=== PATIENT | female | born 1935 | race Caucasian/White ===

== ENCOUNTER 2016-05-27 18:01 | Inpatient (IN) ==
[2016-05-27] MEDS ORDERED: METOPROLOL TARTRATE 5 MG/5 ML VIAL IV STA (20:25)
[2016-05-27] MEDS ORDERED: hydrALAZINE 20 MG/1 ML VIAL IV STA (20:25)
[2016-05-27] MEDS ORDERED: KETOROLAC 30 MG/1 ML VIAL IV STA (20:25)
[2016-05-27] MEDS ORDERED: ASPIRIN 325 MG TABLET PO STA (20:25)
[2016-05-27] MEDS ORDERED: ONDANSETRON 4 MG/2 ML VIAL IV STA (20:25)
[2016-05-27] MEDS ORDERED: NITROGLYCERIN 2% OINT 1 INCH/GM PACK TOP STA (20:25)
--- NOTE | 2016-05-27 20:32 | Emergency Department Note ---
Arrival - Arrival Chief Complaint: Chest Pain Stated Complaint: Chest pain, shortness of breath ED Nursing Triage Note: PT C/O MIDSTERNAL CHEST PAIN SINCE 0800 THIS AM. STATES PAIN WORSENS WITH DEEP BREATHS AND MOVEMENTS. REPORTS INCREASING SHORTNESS OF BREATH WITH EXERTION. Mode of Arrival: Wheelchair Limitations: No Limitations Source: Patient, Family Time Seen by Provider: 05/27/16 20:25 - History of Present Illness HPI Narrative: This 81-year-old white female presents with approximately 18 hours of constant central mechanical chest wall pain associated with mild shortness of breath. She denies nausea, vomiting, or diaphoresis. 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 Likewise noted is a history of a hiatal hernia with significant problems with reflux symptoms. In addition to her chest pain she likewise has pain in the left shoulder and left neck. She denies orthopnea, PND, hemoptysis, or pleuritic chest pain. Also notable is the absence of a history of hypertension but the patient presents with markedly elevated blood pressure at this time. Currently she appears anxious but in no acute distress. Onset (ago): hour(s) (patient presents approximately 18 hours after onset of symptoms) Consistency: constant Severity: moderate Severity scale (1-10): 5 Quality: fullness Allergies/Adverse Reactions: Allergies Allergy/AdvReac Type Severity Reaction Status Date / Time No Known Allergies Allergy Verified 05/27/16 18:16 Home Medications: Home Medications Medication Instructions Recorded Confirmed Type Levothyroxine Tab [Synthroid Tab] 88 mcg PO DAILY@0700 08/13/14 05/27/16 History Lovastatin 40 mg PO BEDTIME 08/13/14 05/27/16 History Metformin HCl 1,000 mg PO BID 08/13/14 05/27/16 History Multivitamin (Centrum Silver) 1 tablet PO DAILY 08/13/14 05/27/16 History [Centrum Silver] Vit A/Vit C/Vit E/Zinc/Copper 1 each PO DAILY 08/13/14 05/27/16 History [Preservision Areds Softgel] Warfarin [Coumadin] 4 mg PO QOTHER DAY@1800 08/13/14 05/27/16 History glipiZIDE [Glucotrol] 10 mg PO BIDAC 08/13/14 05/27/16 History traMADol TAB [Ultram] 50 mg PO Q6H PRN 08/13/14 05/27/16 History Calcium (Carbonate) [Caltrate 600] 1,200 mg PO BID 05/27/16 05/27/16 History Warfarin [Coumadin] 5 mg PO QOTHER DAY 05/27/16 05/27/16 History Review of System - Review of System 12 point system: reviewed and no additional remarkable complaints except as stated - Review of System Constitutional: Present: as per HPI Respiratory: Present: as per HPI Cardiovascular: Present: as per HPI Gastrointestinal: Present: as per HPI Musculoskeletal: Present: as per HPI Medical,Surgical,& Family Hx - Medical History Cardio: History of: Hypertension No history of: CAD, [place] Neurology: History of: Cerebrovascular Accident (3 strokes) No history of: Migraine, Seizures HEENT: History of: Eye Problem (glasses) Endocrine: History of: Diabetes Mellitus (NIDDM), Dyslipidemia Respiratory: History of: Pulmonary Embolism (and DVT, has filter adn on anticoagulation.) Renal: No history of: Renal Failure Gastrointestinal: History of: GERD, GI Problems (large hiatal hernia producing dysphagia at times) No history of: Diverticulitis/ Diverticulosis, Gastrointestinal Bleed Musculoskeletal: History of: Musculoskeletal Problems (arthritis in shoulders, knees) Hematology: History of: Anemia, Clotting Problems (dvts--hyper-coagulable state) No history of: Blood Transfusion Reaction Other: No history of: Anesthesia Reactions, Cancer - Surgical History Cardiac Surgeries: Patient Denies: Cardiac Catheterization HEENT Surgeries: Patient denies: Eye Surgery, Tonsilectomy & Adenoidectomy Abdominal Surgeries: Surgical HX of: Appendectomy Patient denies: Cholecystectomy Reproductive Surgeries: Surgical HX of;: Hysterectomy Orthopedic Surgeries: Patient denies;: Orthopedic Surgery - Family History Family History: Reports;: Family Cancer (), Family Hypertension (Daughter ) - Social History Smoking Status: Never smoker Frequency of Alcohol Use: None Type of Drug Use: None Exam Physical Examination: GENERAL: Well developed, well nourished, white female in no acute distress. HEENT: Normocephalic. No trauma. Moist mucous membranes. EOMI. PERRLA. ENT clear. NECK: Supple. Paraspinal cervical muscle spasm noted left greater than right. No adenopathy. CARDIAC: Regular. 1/4 belkis, loud p2. Heart rate 110 CHEST: Clear to auscultation. No respiratory distress. O2 sat 98% tender right and left costosternal junctions. ABDOMEN: Soft. Nontender. Active bowel sounds. EXTREMITIES: No trauma. Left shoulder reveals tenderness to palpation range of motion but no limits on range of motion. No pedal edema. SKIN: No diaphoresis. No rash. NEURO: Alert. Oriented 3. Motor, sensory, vibratory intact. No focal deficits. Vital Signs: Vital Signs Temperature 98.5 F 05/27/16 18:10 Pulse Rate 111 H 05/27/16 18:10 Respiratory Rate 24 05/27/16 18:10 Blood Pressure 182/97 05/27/16 18:10 O2 Sat by Pulse Oximetry 98 05/27/16 18:10 Course - Reevaluation(s) Reevaluation #1: Discussed with patient's family and the patient that she has both a left lower lobe pneumonia and an active bladder infection. - Consultations Consultation #1: Discussed with Dr. Griffith, hospitalist, who will admit for further evaluation and treatment. Results - Labs CBC & BMP: 05/27/16 20:30 05/27/16 20:30 Labs: I have reviewed the patient's laboratory and noted the bump and white blood cell count as well as the urinary tract infection. - Impressions EKG: Sinus tachycardia at 108. Normal IL interval and QRS duration. Left anterior fascicular block. No acute injury pattern noted. - Diagnostic Findings Procedure: Chest x-ray: image reviewed by me, report reviewed by me (left lower lobe pneumonia) Disposition Clinical Impression: pneumonia, cystitis Case discussed with: patient, patient's family Disposition: Still a Patient Condition: Guarded Time of Disposition: 21:55
[2016-05-27 20:35] LABS: Basophils # 0.1 10*3/uL (0.0-0.2); Basophils % 0.5 % (0.0-0.8); Eosinophils # 0.1 10*3/uL (0.0-0.87); Eosinophils % 0.6 % (0.00-10.9); Hematocrit 40.2 VOL% (35.7-47.0); Hemoglobin 13.2 GM/DL (12.0-16.0); Immature Granulocytes % 0.5 %; Immature Granulocytes Absolute 0.05 #; Lymphocytes # 2.5 10*3/uL (1.4-4.0); Lymphocytes % 22.8 % (21.3-54.2); Mean Corpuscular HGB Conc 32.8 GM/DL (32-36); Mean Corpuscular Hemoglobin 29 PG (27-34); Mean Corpuscular Volume 88.5 FL (87-102); Mean Platelet Volume 9.7 FL (9.6-12.0); Monocytes # 1.1 10*3/uL (0.11-0.8); Monocytes % 10.4 % (1.7-12.7); Neutrophils # 7.2 10*3/uL (1.4-7.4); Neutrophils % 65.2 % (38.7-73.9); Platelet Count 338 10*3/uL (130-400); Red Blood Count 4.54 10*6/uL (3.8-5.5); Red Cell Distribution Width 14.7 % (9.3-17.3)
[2016-05-27] MEDS ORDERED: NITROGLYCERIN 2% OINT 1 INCH/GM PACK TOP ONE (20:35)
[2016-05-27] MEDS ORDERED: LORazepam 1 MG TABLET PO STA (20:35)
[2016-05-27] MEDS ORDERED: KETOROLAC 30 MG/1 ML VIAL ONE (20:36)
[2016-05-27] MEDS ORDERED: METOPROLOL TARTRATE 5 MG/5 ML VIAL IV ONE (20:36)
[2016-05-27] MEDS ORDERED: hydrALAZINE 20 MG/1 ML VIAL ONE (20:36)
[2016-05-27] MEDS ORDERED: ASPIRIN 325 MG TABLET ONE (20:36)
[2016-05-27] MEDS ORDERED: ONDANSETRON 4 MG/2 ML VIAL ONE (20:36)
[2016-05-27 20:51] LABS: D-Dimer <= 0.5 MG/L FEU
[2016-05-27 20:56] LABS: Alanine Aminotransferase 14 U/L (13-56); Albumin 3.6 G/DL (3.4-5.0); Alkaline Phosphatase 87 U/L (45-117); Aspartate Amino Transferase 11 U/L (0-37); Blood Urea Nitrogen 16 MG/DL (7-18); Calcium 9.2 MG/DL (8.5-10.1); Glucose 155 MG/DL (74-106); INR 2.3; Osmolality,Calculated 286.1 MOS/KG (273-304); Potassium 4.4 MMOL/L (3.5-5.1); Sodium 142 MMOL/L (136-145); Total Protein 7.3 G/DL (6.4-8.3); Troponin I Only < 0.015 NG/ML (0.00-0.045)
--- NOTE | 2016-05-27 21:03 | XRay Report ---
Exam: XR chest 1V portable Date: 05/27/2016 8:25 PM Indication: Chest pain Comparison: None Technical:08/29/2014 Findings: Mild cardiomegaly present. Patchy infiltrates are present in the left base with underlying component of pulmonary fibrotic scarring. Low-volume left effusion. ASVD is present. Previous vertebral plasty at 3 levels in the thoracic spine. Bony demineralization is present. Impression: 1. Left lower lobe the pneumonic infiltrate and effusion superimposed on underlying pulmonary fibrosis 2. Previous vertebral plasty. PROCEDURE INTERPRETED AT [facility] DEPARTMENT OF RADIOLOGY Final Report Signed by: Dr. Enrrique Metz
--- NOTE | 2016-05-27 21:05 | XRay Report ---
Exam: XR cervical spine AP/LAT Date: 05/27/2016 8:27 PM Indication: Cervical radiculopathy Comparison: None Technical:AP lateral open-mouth odontoid view Findings: The odontoid is unremarkable. 7 cervical vertebral bodies are demonstrated. Posterior elements are intact. There is a mild disc space narrowing at C3-4 C4-5 C5-6 and C6-7. Neural foramina canals are not evaluated without oblique images. Vascular plaque present. No prevertebral soft tissue abnormalities the patient is edentulous Impression: 1. Mild intervertebral discogenic disease without fracture dislocation of the submitted images 2. Vascular calcinosis PROCEDURE INTERPRETED AT [facility] DEPARTMENT OF RADIOLOGY Final Report Signed by: Dr. Enrrique Metz
[2016-05-27 21:09] LABS: PT Patient Result 25.6 SECS
[2016-05-27 21:28] LABS: Apearance,Urine CLOUDY (Clear); Bacteria,Urine Moderate /HPF (Few); Bilirubin,Urine Negative (Negative); Blood, Urine Negative (Negative); Glucose,Urine (UA) Negative (Negative); Hyaline Casts,Urine 1 /LPF (0-3); Ketones,Urine Negative (Negative); Mucus,Urine Occasional /LPF (Occasional); Nitrite,Urine Negative (Negative); Protein,Urine Negative; RBC,Urine 7 /HPF (0-4); Squamous Epithelial Cell,Urine Occasional /HPF (0-10); Urine Color Yellow (Yellow); Urine Specific Gravity 1.015 (1.001-1.035); Urine Urobilinogen < 2.0 EU/DL (0.2-1.0); WBC,Urine 45 /HPF (0-6)
[2016-05-27] MEDS ORDERED: LEVOFLOXACIN INJ 750 MG in PREMIX 1 EACH IV STA (21:51)
[2016-05-27] MEDS ORDERED: methylPREDNISolone SOD SUC 125 MG/2 ML VIAL IV STA (21:51)
[2016-05-27] MEDS ORDERED: ALBUTEROL/IPRATROPIUM 3 ML NEB RESP TX STA (21:51)
[2016-05-27] MEDS ORDERED: methylPREDNISolone SOD SUC 125 MG/2 ML VIAL ONE (22:14)
[2016-05-27] MEDS ORDERED: LEVOFLOXACIN INJ 150 ML IV ONE (22:14)
[2016-05-27] MEDS ORDERED: LORazepam 1 MG TABLET ONE (22:14)
[2016-05-27] MEDS ORDERED: ALBUTEROL 2.5 MG/3 ML NEB RESP TX PRN (23:42)
[2016-05-27] MEDS ORDERED: ACETAMINOPHEN 325 MG TABLET PO PRN (23:42)
[2016-05-27] MEDS ORDERED: traMADol 50 MG TABLET PO PRN (23:42)
[2016-05-27] MEDS ORDERED: DEXTROSE 50% 25 GM/50 ML VIAL IV PRN (23:42)
[2016-05-27] MEDS ORDERED: ONDANSETRON 4 MG/2 ML VIAL IV PRN (23:42)
[2016-05-27] MEDS ORDERED: GLUCAGON 1 MG VIAL IM PRN (23:42)
--- NOTE | 2016-05-28 00:38 | Hospitalist History & Physical ---
Assessment and Plan (1) Pulmonary fibrosis Status: Acute Assessment and plan: The patient has had episodes of pulmonary infiltrates in the past which improved with steroids and antibiotics. The patient will be admitted for treatment with steroid, antibiotic, and beta agonist nebulized breathing therapies. We will ask Dr. Henson to evaluate her in the morning. The patient will have antiacid medications to help with the GI discomfort as well Current Visit: Yes (2) GERD (gastroesophageal reflux disease) Status: Acute Current Visit: Yes (3) Pneumonia Status: Acute Current Visit: No History of Present Illness Chief complaint: substernal chest and epigastric pain History of present illness: Ms. Malcolm is a 81 year old female with history of pulmonary fibrosis. The patient presents to the hospital with substernal chest pressure as well as epigastric pain. The patient's pain is not exertional. It is associated with worsening pulmonary infiltrate and possible pneumonia seen on chest x-ray. The patient denies diaphoresis or fever at home. The patient has not had palpitations. The patient has had minimal shortness of breath and occasional sputum production. The patient's symptoms are moderate, episodic, and worsening. Home Medications Medication Instructions Recorded Confirmed Type Levothyroxine Tab [Synthroid Tab] 88 mcg PO DAILY@0700 08/13/14 05/27/16 History Lovastatin 40 mg PO BEDTIME 08/13/14 05/27/16 History Metformin HCl 1,000 mg PO BID 08/13/14 05/27/16 History Multivitamin (Centrum Silver) 1 tablet PO DAILY 08/13/14 05/27/16 History [Centrum Silver] Vit A/Vit C/Vit E/Zinc/Copper 1 each PO DAILY 08/13/14 05/27/16 History [Preservision Areds Softgel] Warfarin [Coumadin] 4 mg PO QOTHER DAY@1800 08/13/14 05/27/16 History glipiZIDE [Glucotrol] 10 mg PO BIDAC 08/13/14 05/27/16 History traMADol TAB [Ultram] 50 mg PO Q6H PRN 08/13/14 05/27/16 History Calcium (Carbonate) [Caltrate 600] 1,200 mg PO BID 05/27/16 05/27/16 History Warfarin [Coumadin] 5 mg PO QOTHER DAY 05/27/16 05/27/16 History Allergies Allergy/AdvReac Type Severity Reaction Status Date / Time No Known Allergies Allergy Verified 05/27/16 18:16 Medical,Surgical,& Family Hx - Medical History Cardio: History of: Hypertension No history of: CAD, [place] Neurology: History of: Cerebrovascular Accident (3 strokes) No history of: Migraine, Seizures HEENT: History of: Eye Problem (glasses) Endocrine: History of: Diabetes Mellitus (NIDDM), Dyslipidemia Respiratory: History of: Pulmonary Embolism (and DVT, has filter adn on anticoagulation.) Renal: No history of: Renal Failure Gastrointestinal: History of: GERD, GI Problems (large hiatal hernia producing dysphagia at times) No history of: Diverticulitis/ Diverticulosis, Gastrointestinal Bleed Musculoskeletal: History of: Musculoskeletal Problems (arthritis in shoulders, knees) Hematology: History of: Anemia, Clotting Problems (dvts--hyper-coagulable state) No history of: Blood Transfusion Reaction Other: No history of: Anesthesia Reactions, Cancer - Surgical History Cardiac Surgeries: Patient Denies: Cardiac Catheterization HEENT Surgeries: Patient denies: Eye Surgery, Tonsilectomy & Adenoidectomy Abdominal Surgeries: Surgical HX of: Appendectomy Patient denies: Cholecystectomy Reproductive Surgeries: Surgical HX of;: Hysterectomy Orthopedic Surgeries: Patient denies;: Orthopedic Surgery - Family History Family History: Reports;: Family Cancer (), Family Hypertension (Daughter ) - Social History Smoking Status: Never smoker Frequency of Alcohol Use: None Type of Drug Use: None Marital Status: Lives With:: Children Functional capacity: uses cane/walker 12 point system: reviewed and no additional remarkable complaints except as stated Exam - Constitutional Exam: Constitutional System: Mild distress. No tremulousness. Mild cough, some anxiety Head: Normocephalic, atraumatic. Ears, Nose and Throat System: No evidence of Otitis or Mastoiditis. No epistaxis or discharge Eyes System: Pupils equal, round, and reactive. Extraocular muscles intact. Neck: Supple, without adenopathy, No jugular venous distention. No thyromegaly , neck mass, or prior surgery apparent. Respiratory System: Chest with Velcro sounds generally and some left lower chest rhonchi to auscultation. Cardiovascular System: Heart with regular rate and rhythm. No murmur. GI System: Abdomen soft, nontender. Normoactive bowel sounds present. Patient prefers to the epigastrium and xiphoid as origin of her pain Musculoskeletal System: limbs with no pedal edema. Full distal pulses. Neurological System: No discernable sensory deficit. No aphasia Psychiatric System: Conversation is rational Results - Labs CBC & BMP: 05/27/16 20:30 05/27/16 20:30 Lab Results: I have reviewed the past 24 hour labs - Diagnostic Findings Procedure: Chest x-ray: image reviewed by me (chronic scarring bilaterally consistent with fibrosis, pleural effusion on the left with possible infiltrate) Quality Measures - VTE Contraindication to Pharmacological VTE Prophylaxis: Already on Theraputic Agent , No Prophylaxis Needed
[2016-05-28] MEDS: methylPREDNISolone SOD SUC 40 MG/1 ML VIAL IV SCH ×3 (01:01→22:28)
[2016-05-28] MEDS: ALBUTEROL/IPRATROPIUM 3 ML NEB RESP TX SCH ×4 (01:11→20:41)
[2016-05-28] MEDS: ALUMINUM/MAGNES/SIMETH MAX STR 30 ML UDCUP PO SCH ×4 (01:13→18:20)
[2016-05-28] MEDS: SODIUM CHLORIDE 0.9% 1,000 ML IV SCH ×2 (01:13→14:41)
[2016-05-28] MEDS: MEROPENEM 1,000 MG in SODIUM CHLORIDE 0.9% 100 ML IV SCH ×4 (01:13→23:40)
[2016-05-28 04:34] LABS: Basophils % 0.2 % (0.0-0.8); Hematocrit 35.6 VOL% (35.7-47.0); Hemoglobin 11.7 GM/DL (12.0-16.0); Immature Granulocytes % 0.5 %; Immature Granulocytes Absolute 0.03 #; Lymphocytes # 0.6 10*3/uL (1.4-4.0); Lymphocytes % 8.7 % (21.3-54.2); Mean Corpuscular HGB Conc 32.9 GM/DL (32-36); Mean Corpuscular Hemoglobin 29 PG (27-34); Mean Corpuscular Volume 89.2 FL (87-102); Mean Platelet Volume 10.3 FL (9.6-12.0); Monocytes % 0.6 % (1.7-12.7); Neutrophils # 5.9 10*3/uL (1.4-7.4); Platelet Count 317 10*3/uL (130-400); Red Blood Count 3.99 10*6/uL (3.8-5.5); Red Cell Distribution Width 14.8 % (9.3-17.3); White Blood Count 6.6 10*3/uL (4.5-13.71)
[2016-05-28 04:44] LABS: INR 2.2
[2016-05-28 04:49] LABS: PT Patient Result 24.1 SECS
[2016-05-28 05:10] LABS: Blood Urea Nitrogen 18 MG/DL (7-18); Calcium 8.5 MG/DL (8.5-10.1); Glucose 361 MG/DL (74-106); Magnesium 1.6 MG/DL (1.8-2.4); Osmolality,Calculated 297.3 MOS/KG (273-304); Potassium 4.6 MMOL/L (3.5-5.1); Sodium 141 MMOL/L (136-145); Troponin I Only < 0.015 NG/ML (0.00-0.045)
[2016-05-28] MEDS: LEVOTHYROXINE 88 MCG TABLET PO SCH (06:21)
[2016-05-28] MEDS ORDERED: MAGNESIUM SULF RIDER 4 GM in PREMIX 1 EACH IV ONE (07:41)
[2016-05-28] MEDS: glipiZIDE 10 MG TABLET PO SCH ×2 (08:09→15:54)
[2016-05-28] MEDS: PANTOPRAZOLE 40 MG TABLET PO SCH (08:09)
[2016-05-28] MEDS: MULTIVITAMIN (OCUVITE) TABLET PO SCH (08:09)
[2016-05-28] MEDS: MULTIVITAMIN (CENTRUM) TABLET PO SCH (08:09)
[2016-05-28] MEDS: CALCIUM (CARBONATE) 600 MG TABLET PO SCH ×2 (08:09→21:31)
[2016-05-28] MEDS: INSULIN LISPRO 100 UNIT/ML SUBCUT SCH ×4 (08:10→21:32)
--- NOTE | 2016-05-28 10:10 | EKG Report ---
Stationary ECG Study [facility] ER Test Date: 05/27/2016 6:20:49 PM Pat Name: TAMERA SIMON Department: Room: 115 Gender: F Measuring Clerk: Antonina : 1935 Requested by: Sameer Arana Order Number: [id number] Reading MD: LENIN VELA Intervals [place] Rate: 108 P: 63 AK: 179 QRS: -57 QRSD: 77 T: 64 QT: 321 QTc: 384 Interpretive Statements SINUS TACHYCARDIA CONSISTENT WITH PULMONARY DISEASE LEFT ANTERIOR FASCICULAR BLOCK INFERIOR INFARCT, AGE UNDETERMINED Electronically Signed On 05-29-16 21:50:07 VIDEO OPERATOR by LENIN VELA [id number]
--- NOTE | 2016-05-28 11:07 | Pulmonology Consult Note ---
History of Present Illness Chief complaint: Acute left lower lung pneumonia. Shortness of breath History of present illness: Ms. Malcolm is a 81 year old white female whom I been asked to see in pulmonary consultation for evaluation and treatment. This patient is followed in internal medicine clinic by Dr. Martin Warner. I saw her in [facility] June 2012. This patient complains of acute shortness of breath she has some left lower chest pain which appears to be costochondritis. She has a cough but very little sputum production she has had no hemoptysis. She denies bleeding from any other site. She has had some diaphoresis. She denies dysphagia. She has had no palpitations. She denies dysphagia. The remainder of the review of systems is noncontributory. Allergies none. Home medicines. See below. Past history. Chronic Coumadin therapy for past history of a stroke. Note the patient says she has never had deep venous thrombophlebitis. Non-insulin- dependent diabetes mellitus. Hyperlipidemia. Hypothyroidism. 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 History of bronchospastic disease. Hospitalization June 2015 with acute bilateral pneumonia secondary to see the need of back to. At that time she had associated hypoxemia. Previous appendectomy and cholecystectomy. Previous hysterectomy. Social history. Patient never smoked. She denies alcohol. She is a . She lives with her children. She uses a cane and a walker. Family history. Her daughter had high blood pressure. Chest x-ray. Left lower lung infiltrate compatible with pneumonia. Microbiology. Urine is growing a gram-negative alfa. Lab. Admit white count was 11,000 with 65 segs and 23 lymphs. H&H 11.7/35.6. Platelet count is 317,000. INR is 2.2. Electrolytes are normal. Creatinine is 1.2. BUN is 18. Cardiac enzymes are negative. Urine shows white blood cells and bacteria. Liver function tests protein and albumin are normal. Natruretic peptide is 48. Vital signs. See below Psychiatric. Oriented 3 Neurologic. Cranial nerves are intact with slowness to speak and some bilateral decreased hearing acuity long track motor functions intact. Pupils irises sclera conjunctiva are normal. Face is symmetrical. Parotid glands are normal. Lips and tongue appear to be normal. Neck. Symmetrical. Kyphotic. No meningismus. Lymphatics. No submandibular cervical or supraclavicular or epitrochlear adenopathy. Chest is symmetrical kyphotic with mild prolongation of expiration. I do not hear any wheezing. Patient has chest wall tenderness over the left lower ribs near the anterior axillary line. Pain is reproduced with pressure over this area strongly suggestive of costochondritis Abdomen. Nontender. Bowel sounds are present. No organs were palpated. and rectal deferred Breast deferred Lower extremities no clubbing no edema no deep venous thrombophlebitis. The remainder of the physical exam was negative. Skin of the face and hands showed no cancerous infectious lesions. No other areas of skin were examined. Impression. 1. Acute left lower lung bacterial pneumonia. 2. History of bronchospastic disease. 3. 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 Diabetes mellitus 5. Hypothyroidism 6. Hyperlipidemia 7. Chronic Coumadin therapy as treatment of an old stroke Plan. 1. Patient is on Levaquin and Elaine. I have decreased the Levaquin dose. 2. Follow-up chest x-ray on Tuesday 3. Sputum for Gram stain culture and sensitivity 4. Cold agglutinins 5. Legionella titer 6. Watch for wheezing. None present today 7. Daily INR Home Medications Medication Instructions Recorded Confirmed Type Levothyroxine Tab [Synthroid Tab] 88 mcg PO DAILY@0700 08/13/14 05/27/16 History Lovastatin 40 mg PO BEDTIME 08/13/14 05/27/16 History Metformin HCl 1,000 mg PO BID 08/13/14 05/27/16 History Multivitamin (Centrum Silver) 1 tablet PO DAILY 08/13/14 05/27/16 History [Centrum Silver] Vit A/Vit C/Vit E/Zinc/Copper 1 each PO DAILY 08/13/14 05/27/16 History [Preservision Areds Softgel] Warfarin [Coumadin] 4 mg PO QOTHER DAY@1800 08/13/14 05/27/16 History glipiZIDE [Glucotrol] 10 mg PO BIDAC 08/13/14 05/27/16 History traMADol TAB [Ultram] 50 mg PO Q6H PRN 08/13/14 05/27/16 History Calcium (Carbonate) [Caltrate 600] 1,200 mg PO BID 05/27/16 05/27/16 History Warfarin [Coumadin] 5 mg PO QOTHER DAY 05/27/16 05/27/16 History Allergies Allergy/AdvReac Type Severity Reaction Status Date / Time No Known Allergies Allergy Verified 05/27/16 18:16 Exam (Pulmonay) H&P - Constitutional Vitals: Period Temp Pulse Resp BP Sys/Vilchis Pulse Ox Last 24 Hr 99.0 F-99.4 F 92-119 20-34 110-162/58-103 97-100 Medical,Surgical,& Family Hx - Medical History Cardio: History of: Hypertension No history of: CAD, [place] Neurology: History of: Cerebrovascular Accident (3 strokes) No history of: Migraine, Seizures HEENT: History of: Eye Problem (glasses) Endocrine: History of: Diabetes Mellitus (NIDDM), Dyslipidemia Respiratory: History of: Pulmonary Embolism (and DVT, has filter adn on anticoagulation.) Renal: No history of: Renal Failure Gastrointestinal: History of: GERD, GI Problems (large hiatal hernia producing dysphagia at times) No history of: Diverticulitis/ Diverticulosis, Gastrointestinal Bleed Musculoskeletal: History of: Musculoskeletal Problems (arthritis in shoulders, knees) Hematology: History of: Anemia, Clotting Problems (dvts--hyper-coagulable state) No history of: Blood Transfusion Reaction Other: No history of: Anesthesia Reactions, Cancer - Surgical History Cardiac Surgeries: Patient Denies: Cardiac Catheterization HEENT Surgeries: Patient denies: Eye Surgery, Tonsilectomy & Adenoidectomy Abdominal Surgeries: Surgical HX of: Appendectomy Patient denies: Cholecystectomy Reproductive Surgeries: Surgical HX of;: Hysterectomy Orthopedic Surgeries: Patient denies;: Orthopedic Surgery - Family History Family History: Reports;: Family Cancer (), Family Hypertension (Daughter ) - Social History Smoking Status: Never smoker Frequency of Alcohol Use: None Type of Drug Use: None Results - Labs CBC & BMP: 05/28/16 03:56 05/28/16 03:56 Quality Measures - VTE Contraindication to Pharmacological VTE Prophylaxis: Already on Theraputic Agent , No Prophylaxis Needed
--- NOTE | 2016-05-28 12:10 | Physician Query Form ---
CLICK EDIT DOCUMENT TO SELECT QUERY ANSWER --> OK --> SIGN Stormy Flores RN Clinical Hand Shaper W) [phone] (f) [phone] [email or web address]: Make your selection(s) from the choices in EACH section by typing an "x" and enter comments in the comment section. Please use your independent medical judgment in providing your response. This request does not imply that any particular answer is desired or expected. CLINICAL INDICATORS: (Providers should not edit this section) Based on documentation of "Urine shows white blood cells and bacteria" Urine culture positive for Gram Negative Rods. Treated with IV Levaquin and IV Merrem. Based on the above, could you clarify the appropriate diagnosis, if significant , that supports the above abnormalities and additional evaluation, monitoring, and/or treatment rendered: ( X ) Treating for UTI ( ) Does NOT have a UTI ( ) Other, please specify: ( ) Clinically unable to determine COMMENTS: Use of terms such as suspected, likely, or probable (associated with a specific diagnosis that is being evaluated, monitored, or treated as if it exists) are acceptable and can be restated in the discharge summary if not ruled out. [facility]
--- NOTE | 2016-05-28 13:56 | Ultrasound Report ---
Referring physician: Jose Griffith Exam: Bilateral lower extremity venous ultrasound Date: May 28, 2016 Comparison: Lower extremity venous ultrasound June 08, 2012 Reason: Shortness of breath, leg pain, reported history of DVT/PE Technique: Duplex scan of the bilateral lower extremity veins was performed using B-Mode/grayscale imaging and Doppler spectral analysis and color flow. Ultrasound images were captured and stored. Findings: There is no evidence of thrombus within the left or right common femoral veins, saphenous veins, superficial femoral veins or popliteal veins. Normal compression and augmentation are present throughout. Normal color flow and spectral analysis are observed. Impression: No evidence of deep venous thrombosis within either lower extremity. PROCEDURE INTERPRETED AT [facility] DEPARTMENT OF RADIOLOGY Final Report Signed by: Dr. Leila Garnica
[2016-05-28] MEDS: WARFARIN 5 MG TABLET PO SCH (18:20)
[2016-05-28] MEDS: LOVASTATIN 20 MG TABLET PO SCH (21:32)
[2016-05-28] MEDS: LEVOFLOXACIN INJ 500 MG in PREMIX 1 EACH IV SCH (21:35)
[2016-05-28] MEDS ORDERED: LEVOFLOXACIN INJ 750 MG in PREMIX 1 EACH IV SCH (22:00)
[2016-05-29] MEDS: ALBUTEROL/IPRATROPIUM 3 ML NEB RESP TX SCH ×4 (01:58→19:17)
[2016-05-29 03:06] LABS: INR 1.8; PT Patient Result 19.3 SECS
[2016-05-29 04:05] LABS: Calcium 8.6 MG/DL (8.5-10.1); Magnesium 2.3 MG/DL (1.8-2.4); Osmolality,Calculated 290.1 MOS/KG (273-304); Potassium 4.5 MMOL/L (3.5-5.1)
[2016-05-29] MEDS: SODIUM CHLORIDE 0.9% 1,000 ML IV SCH ×2 (06:50→21:37)
[2016-05-29] MEDS: LEVOTHYROXINE 88 MCG TABLET PO SCH (06:50)
--- NOTE | 2016-05-29 07:54 | XRay Report ---
XR chest 2V Indication: Pneumonia. Pulmonary fibrosis. Chest 2 views: Comparison 2 days ago shows little significant change in the appearance of diffuse pulmonary fibrotic scarring, possible honeycombing lateral left lung base, cavitary lesion left lower lobe or lingula, patchy infiltrate left lung base, low lung volumes and normal heart size. Multilevel vertebroplasty is shown as well. Impression: Little significant change from 2 days ago. PROCEDURE INTERPRETED AT [facility] DEPARTMENT OF RADIOLOGY Final Report Signed by: Moo Abreu M.D.
[2016-05-29] MEDS: INSULIN LISPRO 100 UNIT/ML SUBCUT SCH ×4 (08:07→21:35)
[2016-05-29] MEDS: glipiZIDE 10 MG TABLET PO SCH ×2 (08:07→16:42)
[2016-05-29] MEDS: CALCIUM (CARBONATE) 600 MG TABLET PO SCH ×2 (08:07→21:36)
[2016-05-29] MEDS: MULTIVITAMIN (OCUVITE) TABLET PO SCH (08:08)
[2016-05-29] MEDS: MEROPENEM 1,000 MG in SODIUM CHLORIDE 0.9% 100 ML IV SCH ×2 (08:08→16:42)
[2016-05-29] MEDS: MULTIVITAMIN (CENTRUM) TABLET PO SCH (08:08)
[2016-05-29] MEDS: PANTOPRAZOLE 40 MG TABLET PO SCH (08:08)
[2016-05-29] MEDS: methylPREDNISolone SOD SUC 40 MG/1 ML VIAL IV SCH ×2 (09:29→22:52)
--- NOTE | 2016-05-29 09:44 | Pulmonology Progress Note ---
Pulmonary - PN: Subj Interval history: This 81-year-old lady was moved from the ICU yesterday. She has a left lower lobe pneumonia. Her urine is growing a gram-negative alfa, sputum are not growing anything in either his blood. She is on Levaquin and Merrem. She feels better today. Appetite is improved. Exam (Progress Note) - Constitutional Vitals: Period Temp Pulse Resp BP Sys/Vilchis Pulse Ox Last 24 Hr 97.0 F-98.6 F 88-114 16-21 132-167/66-94 92-100 Exam: Patient is alert oriented vital signs normal. Pupils react to light. Throat is clear. Neck supple no bruits. Chest shows fairly extensive rales on the left side. The right lung is clear. Heart normal rate rhythm no murmurs. Abdomen soft no masses. Bowel sounds present. Extremities no clubbing cyanosis edema. Calves nontender. Results - Labs CBC & BMP: 05/28/16 03:56 05/29/16 02:03 Lab Results: I have reviewed the past 24 hour labs - Diagnostic Findings Procedure: Chest x-ray: image reviewed by me (left lower lobe infiltrate about the same. Patchy areas on the right side as well.) Assessment and Plan (1) Left lower lobe pneumonia Status: Acute Assessment and plan: Chest x-ray is unchanged. Patient feels a little better. Still sounds fairly coarse on the left side. Continuing with broad-spectrum antibiotics. Current Visit: Yes (2) Urinary tract infection Status: Acute Assessment and plan: Has gram-negative rods growing on urine culture. Final identification pending. Merrem and Levaquin should cover this. Current Visit: Yes (3) H/O: CVA (cerebrovascular accident) Status: Chronic Assessment and plan: Patient is able to sit up move about and feed herself. Current Visit: No
[2016-05-29] MEDS: WARFARIN 5 MG TABLET PO SCH (16:42)
[2016-05-29] MEDS: WARFARIN 4 MG TABLET PO SCH (17:06)
--- NOTE | 2016-05-29 17:26 | Hospitalist Progress Note ---
Assessment and Plan (1) Pulmonary fibrosis Status: Acute Assessment and plan: The patient has had episodes of pulmonary infiltrates in the past which improved with steroids and antibiotics. The patient continued treatment with steroid, antibiotic, and beta agonist nebulized breathing therapies. The patient is on Levaquin for Escherichia coli urinary tract infection and Merrem for pneumonia. She is making satisfactory progress. Current Visit: Yes (2) GERD (gastroesophageal reflux disease) Status: Acute Current Visit: Yes (3) Pneumonia Status: Acute Current Visit: No Hospitalist: Subjective Interval history: The patient's resting quietly. She is been up to toilet. The patient has good appetite. She has a moderate amount of pleurisy on the left-hand side. Exam - Constitutional Vitals: Period Temp Pulse Resp BP Sys/Vilchis Pulse Ox Last 24 Hr 97.4 F-98.5 F 88-114 16-20 132-166/66-90 92-99 Exam: Constitutional System: Mild distress. No tremulousness. Mild cough, some anxiety Head: Normocephalic, atraumatic. Ears, Nose and Throat System: No evidence of Otitis or Mastoiditis. No epistaxis or discharge Eyes System: Pupils equal, round, and reactive. Extraocular muscles intact. Neck: Supple, without adenopathy, No jugular venous distention. No thyromegaly , neck mass, or prior surgery apparent. Respiratory System: Chest with Velcro sounds generally and some left lower chest rhonchi to auscultation. Cardiovascular System: Heart with regular rate and rhythm. No murmur. GI System: Abdomen soft, nontender. Normoactive bowel sounds present. Patient prefers to the epigastrium and xiphoid as origin of her pain Musculoskeletal System: limbs with no pedal edema. Full distal pulses. Neurological System: No discernable sensory deficit. No aphasia Psychiatric System: Conversation is rational Results - Labs CBC & BMP: 05/28/16 03:56 05/29/16 02:03 Lab Results: I have reviewed the past 24 hour labs Quality Measures - VTE Contraindication to Pharmacological VTE Prophylaxis: Already on Theraputic Agent , No Prophylaxis Needed
[2016-05-29] MEDS: LOVASTATIN 20 MG TABLET PO SCH (21:36)
[2016-05-29] MEDS: LEVOFLOXACIN INJ 500 MG in PREMIX 1 EACH IV SCH (22:52)
[2016-05-30] MEDS: MEROPENEM 1,000 MG in SODIUM CHLORIDE 0.9% 100 ML IV SCH ×3 (00:30→15:54)
[2016-05-30] MEDS: ALBUTEROL/IPRATROPIUM 3 ML NEB RESP TX SCH ×4 (00:48→19:45)
[2016-05-30 03:26] LABS: INR 1.7; PT Patient Result 18.6 SECS
[2016-05-30] MEDS: LEVOTHYROXINE 88 MCG TABLET PO SCH (06:15)
[2016-05-30] MEDS: INSULIN LISPRO 100 UNIT/ML SUBCUT SCH ×4 (07:57→22:00)
[2016-05-30] MEDS: glipiZIDE 10 MG TABLET PO SCH ×2 (07:58→15:55)
[2016-05-30] MEDS: PANTOPRAZOLE 40 MG TABLET PO SCH (07:59)
[2016-05-30] MEDS: CALCIUM (CARBONATE) 600 MG TABLET PO SCH ×2 (07:59→22:00)
[2016-05-30] MEDS: MULTIVITAMIN (CENTRUM) TABLET PO SCH (07:59)
[2016-05-30] MEDS: MULTIVITAMIN (OCUVITE) TABLET PO SCH (07:59)
--- NOTE | 2016-05-30 09:56 | Pulmonology Progress Note ---
Pulmonary - PN: Subj Interval history: This 81-year-old lady was moved from the ICU yesterday. She has a left lower lobe pneumonia. Her urine is growing a gram-negative alfa, sputum are not growing anything in either his blood. She is on Levaquin and Merrem. She feels better today. Appetite is improved. 05/30/2016 patient is feeling a little better. She is complaining of some pain and normally takes Advil for that. She has pain in the left shoulder that is chronic. I do not think it is pleuritic pain. Advil has been ordered. Her blood sugars are running high. We will increase to high sliding scale insulin. She is on oral glipizide. Exam (Progress Note) - Constitutional Vitals: Period Temp Pulse Resp BP Sys/Vilchis Pulse Ox Last 24 Hr 97.5 F-98.4 F 89-114 18-20 134-160/64-78 94-99 Exam: Patient is alert oriented vital signs normal. Pupils react to light. Throat is clear. Neck supple no bruits. Chest shows fairly extensive rales on the left side. The right lung is clear. Heart normal rate rhythm no murmurs. Abdomen soft no masses. Bowel sounds present. Extremities no clubbing cyanosis edema. Calves nontender. Some pain in left shoulder with rotation of the shoulder. Results - Labs CBC & BMP: 05/28/16 03:56 05/29/16 02:03 Lab Results: I have reviewed the past 24 hour labs Assessment and Plan (1) Left lower lobe pneumonia Status: Acute Assessment and plan: Chest x-ray is unchanged. Patient feels a little better. Still sounds fairly coarse on the left side. Continuing with broad-spectrum antibiotics. 05/30/2016 clinically she is improved. Continuing current antibiotics. Current Visit: Yes (2) Urinary tract infection Status: Acute Assessment and plan: Has gram-negative rods growing on urine culture. Final identification pending. Merrem and Levaquin should cover this. 05/30/2016 continuing Merrem and Levaquin. She grew Escherichia coli and it is sensitive to both of these. Current Visit: Yes (3) H/O: CVA (cerebrovascular accident) Status: Chronic Assessment and plan: Patient is able to sit up move about and feed herself. 05/30/2016 patient is talking a little better today. Current Visit: No
[2016-05-30] MEDS: methylPREDNISolone SOD SUC 40 MG/1 ML VIAL IV SCH ×2 (10:07→22:00)
[2016-05-30] MEDS ORDERED: IBUPROFEN 400 MG TABLET PO ONE (11:00)
--- NOTE | 2016-05-30 16:45 | Hospitalist Progress Note ---
Assessment and Plan (1) Pulmonary fibrosis Status: Acute Assessment and plan: The patient has had episodes of pulmonary infiltrates in the past which improved with steroids and antibiotics. The patient continued treatment with steroid, antibiotic, and beta agonist nebulized breathing therapies. The patient is on Levaquin for Escherichia coli urinary tract infection and Merrem for pneumonia. She is making satisfactory progress. I'm going to order x-ray of the left shoulder to evaluate the pain. Current Visit: Yes (2) GERD (gastroesophageal reflux disease) Status: Acute Current Visit: Yes (3) Pneumonia Status: Acute Current Visit: No Hospitalist: Subjective Interval history: The patient has less shortness of breath. Wheezing is improving. The patient has developed pain in the left shoulder and reduced range of motion. Exam - Constitutional Vitals: Period Temp Pulse Resp BP Sys/Vilchis Pulse Ox Last 24 Hr 97.5 F-98.4 F 89-111 18-20 134-149/64-71 94-99 Exam: Constitutional System: Mild distress. No tremulousness. Mild cough, some anxiety Head: Normocephalic, atraumatic. Ears, Nose and Throat System: No evidence of Otitis or Mastoiditis. No epistaxis or discharge Eyes System: Pupils equal, round, and reactive. Extraocular muscles intact. Neck: Supple, without adenopathy, No jugular venous distention. No thyromegaly , neck mass, or prior surgery apparent. Respiratory System: Chest with Velcro sounds generally and some left lower chest rhonchi to auscultation. Cardiovascular System: Heart with regular rate and rhythm. No murmur. GI System: Abdomen soft, nontender. Normoactive bowel sounds present. Patient prefers to the epigastrium and xiphoid as origin of her pain Musculoskeletal System: limbs with no pedal edema. Full distal pulses. Neurological System: No discernable sensory deficit. No aphasia Psychiatric System: Conversation is rational Results - Labs CBC & BMP: 05/28/16 03:56 05/29/16 02:03 Lab Results: I have reviewed the past 24 hour labs Quality Measures - VTE Contraindication to Pharmacological VTE Prophylaxis: Already on Theraputic Agent , No Prophylaxis Needed
[2016-05-30] MEDS: WARFARIN 5 MG TABLET PO SCH (17:36)
--- NOTE | 2016-05-30 19:10 | XRay Report ---
XR shoulder 2V LT Indication: Left shoulder pain. Left shoulder 2 views: [id number] articulation with significant osteophyte development glenohumeral joint noted. Findings are unchanged when compared to 08/29/2014. No acute fracture or dislocation seen. Impression: Severe arthritic changes left shoulder. PROCEDURE INTERPRETED AT [facility] DEPARTMENT OF RADIOLOGY Final Report Signed by: Moo Abreu M.D.
[2016-05-30] MEDS: SODIUM CHLORIDE 0.9% 1,000 ML IV SCH (19:45)
[2016-05-30] MEDS: LOVASTATIN 20 MG TABLET PO SCH (22:00)
[2016-05-30] MEDS: LEVOFLOXACIN INJ 500 MG in PREMIX 1 EACH IV SCH (22:01)
[2016-05-31] MEDS: ALBUTEROL/IPRATROPIUM 3 ML NEB RESP TX SCH ×4 (00:31→19:26)
[2016-05-31] MEDS: MEROPENEM 1,000 MG in SODIUM CHLORIDE 0.9% 100 ML IV SCH ×4 (00:55→23:59)
[2016-05-31] MEDS: LEVOTHYROXINE 88 MCG TABLET PO SCH (06:28)
[2016-05-31 06:31] LABS: Hematocrit 34.8 VOL% (35.7-47.0); Hemoglobin 11.3 GM/DL (12.0-16.0); Immature Granulocytes % 0.6 %; Immature Granulocytes Absolute 0.04 #; Lymphocytes # 0.6 10*3/uL (1.4-4.0); Lymphocytes % 9.9 % (21.3-54.2); Mean Corpuscular HGB Conc 32.5 GM/DL (32-36); Mean Corpuscular Hemoglobin 29 PG (27-34); Mean Platelet Volume 11.2 FL (9.6-12.0); Monocytes # 0.2 10*3/uL (0.11-0.8); Neutrophils # 5.5 10*3/uL (1.4-7.4); Neutrophils % 86.5 % (38.7-73.9); Platelet Count 238 10*3/uL (130-400); Red Blood Count 3.91 10*6/uL (3.8-5.5); Red Cell Distribution Width 15.3 % (9.3-17.3); White Blood Count 6.4 10*3/uL (4.5-13.71)
[2016-05-31 06:40] LABS: INR 1.8; PT Patient Result 19.5 SECS
[2016-05-31 06:55] LABS: Calcium 8.4 MG/DL (8.5-10.1); Magnesium 1.9 MG/DL (1.8-2.4); Potassium 4.8 MMOL/L (3.5-5.1)
--- NOTE | 2016-05-31 07:56 | XRay Report ---
XR chest 2V Date: 05/31/2016 4:00 AM History: Pneumonia, pulmonary fibrosis Comparison: 05/29/2016 Technique: PA and lateral chest Findings: The heart remains normal in size with diffuse arterial calcifications. The lungs remain overexpanded with chronic scarring. Residual diffuse parenchymal findings in the left mid to lower lung zone. Persistent hiatal hernia. Osteopenia with stable scoliosis and multilevel kyphoplasty/compression fractures. Impression: Chronic scarring in the lungs with findings consistent with pneumonia in the left mid to lower lung zone with residual hiatal hernia. Osteopenia with multilevel kyphoplasty. No significant change in the appearance of the chest when compared to the previous exam. PROCEDURE INTERPRETED AT [facility] DEPARTMENT OF RADIOLOGY Final Report Signed by: Dr. Kiana Ledesma
[2016-05-31] MEDS: INSULIN LISPRO 100 UNIT/ML SUBCUT SCH ×4 (09:08→20:42)
[2016-05-31] MEDS: MULTIVITAMIN (OCUVITE) TABLET PO SCH (09:08)
[2016-05-31] MEDS: MULTIVITAMIN (CENTRUM) TABLET PO SCH (09:08)
[2016-05-31] MEDS: CALCIUM (CARBONATE) 600 MG TABLET PO SCH ×2 (09:08→20:42)
[2016-05-31] MEDS: methylPREDNISolone SOD SUC 40 MG/1 ML VIAL IV SCH ×3 (09:09→13:47)
[2016-05-31] MEDS: glipiZIDE 10 MG TABLET PO SCH ×2 (09:09→16:29)
[2016-05-31] MEDS: PANTOPRAZOLE 40 MG TABLET PO SCH (09:09)
[2016-05-31] MEDS: DORNASE ALFA 2.5 MG/2.5 ML VIAL RESP TX SCH ×2 (10:16→19:26)
--- NOTE | 2016-05-31 10:23 | Pulmonology Progress Note ---
Pulmonary - PN: Subj Interval history: This is a 81-year-old white female whom I saw in pulmonary consultation 2016 My impressions were. 1. Acute left lower lung bacterial pneumonia 2. History of bronchospastic disease 3. 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 Diabetes mellitus 5. Hypothyroidism 6. Hyperlipidemia 7. Chronic Coumadin therapy as treatment for an old stroke Patient's urine is growing E. coli. She is on the proper antibiotics per she has no positive sputum cultures. Today's chest x-ray shows 50-60% resolution of acute left lower lung infiltrate. White blood cell count 6486.5 segs and 10 lymphocytes electrolytes are normal creatinine is 1.0 BUNs 20. Patient has a complaint of left arm pain. Nurses note indicates that her son had said in the past that she had arm problems. Dr. Michele saw her this weekend for me and ordered x-rays of her left shoulder and this showed [id number] degenerative joint disease. On my exam I cannot elicit any tender areas. She does complain of some pain at some site with range of motion but the patient is essentially a phasic. Medicines have been reviewed. Labs been reviewed. Vital signs. See below Psychiatric. Oriented 3 cooperative. General. Complaints of left arm pain Neck. Symmetrical no meningismus Lymphatics. No submandibular cervical supra clavicular epitrochlear adenopathy Chest. No wheezes mild coarse large airway congestion over the left upper lung Heart. No gallop Abdomen. Positive bowel sounds Extremities nothing to suggest deep venous thrombophlebitis. The remainder the physical exam is noncontributory. Plan. 1. Follow-up chest x-ray on Tuesday. 2. Attention to left arm pain Exam (Progress Note) - Constitutional Vitals: Period Temp Pulse Resp BP Sys/Vilchis Pulse Ox Last 24 Hr 97.3 F-98.4 F 78-108 18-20 143-163/66-89 95-100 Results - Labs CBC & BMP: 05/31/16 05:21 05/31/16 05:21
[2016-05-31] MEDS: SODIUM CHLORIDE 0.9% 1,000 ML IV SCH (11:40)
--- NOTE | 2016-05-31 13:17 | Hospitalist Progress Note ---
Assessment and Plan (1) Pulmonary fibrosis Status: Acute Assessment and plan: The patient has had episodes of pulmonary infiltrates in the past which improved with steroids and antibiotics. The patient continued treatment with steroid, antibiotic, and beta agonist nebulized breathing therapies. The patient is on Levaquin for Escherichia coli urinary tract infection and Merrem for pneumonia. She is making satisfactory progress. Left shoulder x-ray shows degenerative joint disease. The patient states the tramadol helps but causes her some delirium. I'm going to reduce the dose of [place] to 5 mg every 6 hours and have her try that. We will also give her some ibuprofen twice daily. I reviewed with her son the risk of stomach ulcer on ibuprofen Current Visit: Yes (2) GERD (gastroesophageal reflux disease) Status: Acute Current Visit: Yes (3) Pneumonia Status: Acute Current Visit: No Hospitalist: Subjective Interval history: The patient is resting quietly in bed. Her son is at the bedside. The patient discusses her left shoulder discomfort which is chronic but worsened. X-ray of shoulder yesterday reveals degenerative joint disease without fracture. Exam - Constitutional Vitals: Period Temp Pulse Resp BP Sys/Vilchis Pulse Ox Last 24 Hr 97.3 F-98.4 F 78-108 18-20 144-170/66-94 95-100 Exam: Constitutional System: Mild distress. No tremulousness. Mild cough, some anxiety Head: Normocephalic, atraumatic. Ears, Nose and Throat System: No evidence of Otitis or Mastoiditis. No epistaxis or discharge Eyes System: Pupils equal, round, and reactive. Extraocular muscles intact. Neck: Supple, without adenopathy, No jugular venous distention. No thyromegaly , neck mass, or prior surgery apparent. Respiratory System: Chest with Velcro sounds generally and some left lower chest rhonchi to auscultation. Cardiovascular System: Heart with regular rate and rhythm. No murmur. GI System: Abdomen soft, nontender. Normoactive bowel sounds present. Patient prefers to the epigastrium and xiphoid as origin of her pain Musculoskeletal System: limbs with no pedal edema. Full distal pulses. Neurological System: No discernable sensory deficit. No aphasia Psychiatric System: Conversation is rational Results - Labs CBC & BMP: 05/31/16 05:21 05/31/16 05:21 Lab Results: I have reviewed the past 24 hour labs Quality Measures - VTE Contraindication to Pharmacological VTE Prophylaxis: Already on Theraputic Agent , No Prophylaxis Needed
[2016-05-31] MEDS: IBUPROFEN 400 MG TABLET PO SCH ×2 (14:12→20:42)
[2016-05-31] MEDS: WARFARIN 4 MG TABLET PO SCH (17:26)
[2016-05-31] MEDS: LOVASTATIN 20 MG TABLET PO SCH (20:42)
[2016-05-31] MEDS: LEVOFLOXACIN INJ 500 MG in PREMIX 1 EACH IV SCH (22:05)
[2016-06-01] MEDS: ALBUTEROL/IPRATROPIUM 3 ML NEB RESP TX SCH ×2 (00:19→07:21)
[2016-06-01] MEDS: methylPREDNISolone SOD SUC 40 MG/1 ML VIAL IV SCH (01:46)
[2016-06-01] MEDS: SODIUM CHLORIDE 0.9% 1,000 ML IV SCH ×2 (01:53→03:07)
[2016-06-01] MEDS: LEVOTHYROXINE 88 MCG TABLET PO SCH (06:10)
[2016-06-01 06:20] LABS: Eosinophils % 0.3 % (0.00-10.9); Hematocrit 35.9 VOL% (35.7-47.0); Hemoglobin 11.5 GM/DL (12.0-16.0); Immature Granulocytes % 0.8 %; Immature Granulocytes Absolute 0.06 #; Lymphocytes # 0.6 10*3/uL (1.4-4.0); Lymphocytes % 8.1 % (21.3-54.2); Mean Corpuscular Hemoglobin 29 PG (27-34); Mean Corpuscular Volume 90.2 FL (87-102); Mean Platelet Volume 10.5 FL (9.6-12.0); Monocytes # 0.5 10*3/uL (0.11-0.8); Monocytes % 5.9 % (1.7-12.7); Neutrophils # 6.6 10*3/uL (1.4-7.4); Neutrophils % 84.9 % (38.7-73.9); Platelet Count 307 T/CUMM (130-400); Red Blood Count 3.98 MC/CUMM (3.8-5.5); Red Cell Distribution Width 15.1 % (9.3-17.3); White Blood Count 7.8 T/CUMM (4-12)
[2016-06-01 06:26] LABS: INR 1.8; PT Patient Result 19.7 SECS
[2016-06-01 06:48] LABS: Calcium 8.6 MG/DL (8.5-10.1); Magnesium 2.1 MG/DL (1.8-2.4); Osmolality,Calculated 293.7 MOS/KG (273-304); Potassium 4.6 MMOL/L (3.5-5.1)
[2016-06-01] MEDS: DORNASE ALFA 2.5 MG/2.5 ML VIAL RESP TX SCH (07:21)
[2016-06-01] MEDS: MULTIVITAMIN (CENTRUM) TABLET PO SCH (08:35)
[2016-06-01] MEDS: INSULIN LISPRO 100 UNIT/ML SUBCUT SCH ×2 (08:35→11:34)
[2016-06-01] MEDS: CALCIUM (CARBONATE) 600 MG TABLET PO SCH (08:35)
[2016-06-01] MEDS: glipiZIDE 10 MG TABLET PO SCH (08:35)
[2016-06-01] MEDS: IBUPROFEN 400 MG TABLET PO SCH (08:35)
[2016-06-01] MEDS: MEROPENEM 1,000 MG in SODIUM CHLORIDE 0.9% 100 ML IV SCH (08:35)
[2016-06-01] MEDS: PANTOPRAZOLE 40 MG TABLET PO SCH (08:36)
[2016-06-01] MEDS: MULTIVITAMIN (OCUVITE) TABLET PO SCH (08:36)
[2016-06-01 09:18] VITALS: BP 137/76
--- NOTE | 2016-06-01 10:46 | Discharge Summary ---
<Claribel Madrid - Last Filed: 06/01/16 10:42> Hospital Course - Hospital Course Hospital Course: Ms. Malcolm was admitted on 05/28/16 with pulmonary fibrosis, GERD and Pneumonia. CXR showed a worsening pulmonary infiltrate and possible pneumonia. Dr. Taylor was consulted for Pulmonary and saw Ms. Malcolm on 05/28/16. Blood cx's negative , but her Urine cx was positive for E coli UTI. She was treated with Levaquin and Merrem for her pneumonia and UTI. She did require sliding scale for hyperglycemia due to steroid therapy. During her stay, she complained of left shoulder pain and xrays showed [id number] degenerative joint disease. Ms. Malcolm has improved and she will be discharged home today on appropriate medications and follow up. - Time spent with patient Time with patient DS: Greater than 30 minutes (due to plan, doc and med rec.) Diagnosis - Discharge Diagnosis (1) Left lower lobe pneumonia Status: Acute (2) GERD (gastroesophageal reflux disease) Status: Acute (3) Pulmonary fibrosis Status: Acute (4) Urinary tract infection Status: Acute (5) Diabetes Status: Acute (6) H/O: CVA (cerebrovascular accident) Status: Chronic Discharge Plan - Discharge Data Disposition: Disch To Home/Self Care - Discharge Medications New Doxycycline Hyclate Cap [Vibramycin Cap] 100 mg PO BID #10 capsule predniSONE TAB [PredniSONE] 20 mg PO DAILY #20 tablet Continue Multivitamin (Centrum Silver) [Centrum Silver] 1 tablet PO DAILY Metformin HCl 1,000 mg PO BID Warfarin [Coumadin] 4 mg PO QOTHER DAY@1800 traMADol TAB [Ultram] 50 mg PO Q6H PRN PRN Reason: Pain glipiZIDE [Glucotrol] 10 mg PO BIDAC Lovastatin 40 mg PO BEDTIME Levothyroxine Tab [Synthroid Tab] 88 mcg PO DAILY@0700 Vit A/Vit C/Vit E/Zinc/Copper [Preservision Areds Softgel] 1 each PO DAILY Warfarin [Coumadin] 5 mg PO QOTHER DAY Calcium (Carbonate) [Caltrate 600] 1,200 mg PO BID - Follow Up or Referral - Forms/Instructions Exam - Constitutional Vitals: Period Temp Pulse Resp BP Sys/Vilchis Pulse Ox Last 24 Hr 97.5 F-98.2 F 82-110 16-20 137-170/66-94 95-99 Discharge Results Procedures and tests throughout hospitalization: Pending Orders 06/02/16 04:00 XR chest 1V portable Routine Labs on day of discharge: Labs from last 24 hours 06/01/16 06/01/16 06/01/16 07:21 05:28 05:28 WBC RBC Hgb Hct MCV MCH MCHC RDW Plt Count MPV Neut % (Auto) Lymph % (Auto) [place] % (Auto) Eos % (Auto) Baso % (Auto) Neut # (Auto) Lymph # (Auto) [place] # (Auto) Eos # (Auto) Baso # (Auto) Immature Gran % Nucleated RBC % Immature Gran # Nucleated RBCs # INR 1.8 PT Patient/Control Mix 19.7 Sodium 145 Potassium 4.6 Chloride 110 H Carbon Dioxide 24 Anion Gap 15.6 H BUN 22 H Creatinine 1.00 GFR Calculation 57 BUN/Creatinine Ratio 22.00 H Glucose 150 H POC Glucose 274 H Calculated Osmolality 293.7 Calcium 8.6 Magnesium 2.1 06/01/16 05/31/16 05/31/16 05:28 18:28 14:59 WBC 7.8 RBC 3.98 Hgb 11.5 L Hct 35.9 MCV 90.2 MCH 29 MCHC 32.0 RDW 15.1 Plt Count 307 D MPV 10.5 Neut % (Auto) 84.9 H Lymph % (Auto) 8.1 L [place] % (Auto) 5.9 Eos % (Auto) 0.3 Baso % (Auto) 0.0 Neut # (Auto) 6.6 Lymph # (Auto) 0.6 L [place] # (Auto) 0.5 Eos # (Auto) 0.0 Baso # (Auto) 0.0 Immature Gran % 0.8 Nucleated RBC % 0.0 Immature Gran # 0.06 Nucleated RBCs # 0.00 INR PT Patient/Control Mix Sodium Potassium Chloride Carbon Dioxide Anion Gap BUN Creatinine GFR Calculation BUN/Creatinine Ratio Glucose POC Glucose 271 H 161 H Calculated Osmolality Calcium Magnesium 05/31/16 11:02 WBC RBC Hgb Hct MCV MCH MCHC RDW Plt Count MPV Neut % (Auto) Lymph % (Auto) [place] % (Auto) Eos % (Auto) Baso % (Auto) Neut # (Auto) Lymph # (Auto) [place] # (Auto) Eos # (Auto) Baso # (Auto) Immature Gran % Nucleated RBC % Immature Gran # Nucleated RBCs # INR PT Patient/Control Mix Sodium Potassium Chloride Carbon Dioxide Anion Gap BUN Creatinine GFR Calculation BUN/Creatinine Ratio Glucose POC Glucose 234 H Calculated Osmolality Calcium Magnesium DS: Provider Date of admission: 05/27/16 22:11 Primary care physician: Nick Beck Sr. Attending physician on admission: Jose Griffith MD Consults: 05/27/16 23:42 Consult to Physician [CONS] Routine Comment: pneumonia Consulting Provider: Enrrique Taylor Consulting Provider Notified: Yes Consult to Specialist Group: Pulmonology Person Notified: bry Date Notified: 05/28/16 Time Notified: 08:25 05/27/16 23:55 Consult to Pharmacy [CONS] Routine Reason for Pharmacy Consult: Adjust Meds Renal Funct 05/28/16 00:19 Consult to Dietitian [CONS] Routine Reason for Dietitian: Other Consult Comment: admission flowsheet trigger 06/01/16 09:36 Consult to Case Mgmt/Social Srvs [CONS] Routine Reason for Case Mgmt/Social Srvs: Home Health Discharging clinician: Claribel Madrid NP Expected date of discharge: 06/01/16 <Yuli Dior - Last Filed: 06/01/16 11:09> Discharge Plan - Discharge Data Condition at Discharge: Stable Discharge Diet: advance to your usual diet Contact your physician if you experience:: fever over 101, Shortness of breath - Forms/Instructions Additional Discharge Instructions: follow up with PCP in 5-7 days and will need INR checked
--- NOTE | 2016-06-01 12:11 | Pulmonology Progress Note ---
Pulmonary - PN: Subj Interval history: This is a 81-year-old white female whom I saw in pulmonary consultation 2016 My impressions were. 1. Acute left lower lung bacterial pneumonia 2. History of bronchospastic disease 3. 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 Diabetes mellitus 5. Hypothyroidism 6. Hyperlipidemia 7. Chronic Coumadin therapy as treatment for an old stroke 8.1 to [facility] transfer to acute urinary tract infection secondary to E. coli. The E. coli was sensitive to amikacin. Cephapirin. Fortaz. Rocephin. Cipro. Lianne Seaman. Ertapenem. Gentamicin. Imipenem. Levaquin. Nitrofurantoin. Tetracycline. Tobramycin. Patient's urine is growing E. coli. She is on the proper antibiotics per she has no positive sputum cultures. Today's chest x-ray shows 50-60% resolution of acute left lower lung infiltrate. White blood cell count 6486.5 segs and 10 lymphocytes electrolytes are normal creatinine is 1.0 BUNs 20. Patient has a complaint of left arm pain. Nurses note indicates that her son had said in the past that she had arm problems. Dr. Michele saw her this weekend for me and ordered x-rays of her left shoulder and this showed [id number] degenerative joint disease. On my exam I cannot elicit any tender areas. She does complain of some pain at some site with range of motion but the patient is essentially a phasic. Medicines have been reviewed. Labs been reviewed. 06/01/2016. Patient seen along with her family. She is bright and energetic says she feels a lot better. She has been up and moving around. She says her appetite is better. She is anxious to go home. Findings were discussed with her family. Vital signs. See below Psychiatric. Oriented 3 cooperative. General. Complaints of left arm pain Neck. Symmetrical no meningismus Lymphatics. No submandibular cervical supra clavicular epitrochlear adenopathy Chest. No wheezes mild coarse large airway congestion over the left upper lung Heart. No gallop Abdomen. Positive bowel sounds Extremities nothing to suggest deep venous thrombophlebitis. The remainder the physical exam is noncontributory. Plan. 1. Follow-up chest x-ray on Tuesday. 2. Attention to left arm pain 3. 06/01/2016. I agree with your plans to discharge this patient. Continue home antibiotics. I have made her a follow-up appointment to see Dr. Martin Warner in about 3 weeks with a chest x-ray, CBC, BMP. Exam (Progress Note) - Constitutional Vitals: Period Temp Pulse Resp BP Sys/Vilchis Pulse Ox Last 24 Hr 97.5 F-98.1 F 86-110 16-20 137-162/66-85 95-99 Results - Labs CBC & BMP: 06/01/16 05:28 06/01/16 05:28 Specialty Discharge - Follow Up or Referrals
== END 2016-06-01 11:45 | disposition home health service (06) | DRG 194 ==
LOC: N.ED 18:01 → N.EDINP 22:11 → N.ICU 23:37 → N.5E 05-28 14:30
PROVIDERS: ADMIT Internal Medicine; ATTEND Internal Medicine